=== PATIENT | female | born 1985 | race Caucasian/White ===

== ENCOUNTER 2016-12-23 17:30 | Emergency (ER) | payer BC ==
[~2016-12-23 17:30] MED LIST: FIORICET 50-301 EACH PO; LEXAPRO10 PO; NEUR600 PO; PROAIR HFA INH; PROBIOTIC OTC PO; SALONPAS TOP; SUPER B COMP PO; ULTRAM50 PO; VITAMIN D OTC PO; [UNRECOGNIZED DRUG - OTHER] PO
== END 2016-12-23 18:47 | disposition home or self-care (01) ==
LOC: ER 17:30
DX: M54.9 Dorsalgia, unspecified (principal); M79.601 Pain in right arm; Z79.899 Other long term (current) drug therapy
CPT/HCPCS: 72040; 72072; 72100; 73060-RT; 73090-RT; 73130-RT; 96372; 99284; J1885